=== PATIENT | female | born 1945 ===

== ENCOUNTER 2022-08-14 05:40 | Day surgery (SDC) | payer OTHER | END 2022-08-14 13:15 | disposition home or self-care (01) | LOC: AMB-ENDOS 05:40 | PROVIDERS: ATTEND Colon & Rectal Surgery | DX: K57.20 Diverticulitis of large intestine with perforation and abscess without bleeding (principal); R19.4 Change in bowel habit; K64.2 Third degree hemorrhoids; Z20.822 Contact with and (suspected) exposure to COVID-19 ==